=== PATIENT | female | born 1965 | race Caucasian/White ===

== ENCOUNTER 2020-11-23 08:56 | Emergency (ER) | payer OTHER ==
[2020-11-23] MEDS ORDERED: HYDROCODONE/APAP 7.5/325 MG TAB ONE (09:30)
--- NOTE | 2020-11-23 09:35 | RAD REPORT ---
EXAM DESCRIPTION: CT - Head Brain Wo Cont - 11/23/2020 9:23 am CLINICAL HISTORY: TRAUMA Fall, head injury COMPARISON: Facial Bones W/ Mpr dated 11/23/2020 TECHNIQUE: All CT scans are performed using dose optimization technique as appropriate and may inclu de automated exposure control or mA/KV adjustment according to patient size. FINDINGS: No intracranial hemorrhage, hydrocephalus or extra-axial fluid collection.No areas of brai n edema or evidence of midline shift. Moderate hemorrhagic fluid is seen in the right maxillary antrum. The right maxillary sinus is fractu red, fully detailed on dedicated CT face study. The calvarium is intact. IMPRESSION: No acute intracranial abnormality. Right maxillary sinus fracture, fully detailed in dedicated CT face study.
--- NOTE | 2020-11-23 09:39 | RAD REPORT ---
EXAM DESCRIPTION: CT - CTFB CLINICAL HISTORY: TRAUMA Trauma facial pain and swelling. COMPARISON: No comparisons TECHNIQUE: Axial 2 mm thick images of the face were obtained with sagittal and coronal reconstructio n images. All CT scans are performed using dose optimization technique as appropriate and may include automated exposure control or mA/KV adjustment according to patient size. FINDINGS: Fracture is seen involving the posterolateral wall of the right maxillary antrum and the a nterior wall.Moderate hemorrhagic fluid is seen within the right maxillary sinus.The mandible is inta ct. No additional facial bone fracture is seen. The globes and orbital contents are grossly unremarkable.Mastoid air cells are clear. IMPRESSION: Fractures involve the right maxillary sinus bullock with moderate hemorrhagic fluid.
--- NOTE | 2020-11-23 09:52 | ER ---
Nurse's Notes [facility] Name: Betty Garza Age: 55 yrs Sex: Female : 1965 Arrival Date: 11/23/2020 Time: 08:58 Bed 5 Private MD: Diagnosis: Maxillary fracture, unspecified-right Presentation: 11/23 09:06 Chief complaint: Patient states: Tripped and fell walking down stairs, bruising and ph swelling to R eye and R cheek, denies LOC, also reports R elbow pain. Coronavirus screen: Client denies travel out of the [place] in the last 14 days. Ebola Screen: No symptoms or risks identified at this time. Initial Sepsis Screen: Does the patient meet any 2 criteria? Yes Does the patient have a suspected source of infection? No. Patient's initial sepsis screen is negative. Risk Assessment: Do you want to hurt yourself or someone else? Patient reports no desire to harm self or others. Onset of symptoms was November 23, 2020. 09:06 Method Of Arrival: Ambulatory ph 09:06 Acuity: CARLOS 4 ph 09:16 Care prior to arrival: Medication(s) given: Motrin. Mechanism of Injury: Fall down 3 jl7 steps. Trauma event details: Injury occurred in the [facility], Injury occurred: at home. Injury occurred: November 23, 2020 Injury occurred at: 07:30. Trauma Activation: Not Applicable Physician: ED Physician; Name: ; Notified At: ; Arrived At: Physician: General Surgeon; Name: ; Notified At: ; Arrived At: Physician: Radiology; Name: ; Notified At: ; Arrived At: Physician: Respiratory; Name: ; Notified At: ; Arrived At: Physician: Lab; Name: ; Notified At: ; Arrived At: Historical: - Allergies: 09:10 Keflex; ph - PMHx: 09:10 Hypertension; Hyperlipidemia; Fibromyalgia; Diabetes - NIDDM; ph - PSHx: 09:10 Hysterectomy; Appendectomy; ph - Immunization history: Last tetanus immunization: unknown. - Social history:: Smoking status: unknown. Screenin:16 Abuse screen: Denies threats or abuse. Denies injuries from another. Tuberculosis jl7 screening: No symptoms or risk factors identified. 09:20 Nutritional screening: No deficits noted. Fall Risk None identified. jl7 Primary Survey: 09:16 NO uncontrolled hemorrhage observed. A: Airway: patent. Breathing/Chest: Respiratory jl7 pattern: regular, Respiratory effort: spontaneous, unlabored, Chest inspection: symmetrical rise and fall of the chest. Circulation: Pulses: palpable right radial artery and left radial artery. Skin color: pink, Skin temperature: warm. Disability Alert. Exposure/Environment: There is no evidence of uncontrolled external bleeding. Obvious injury(ies) are noted at this time: Swelling to right side of face and bruising noted to right eye. 10:00 Reassessment Breathing/Chest Respiratory pattern Regular. jl7 Secondary Survey: 09:16 HEENT: Head No injury/deformity Face Other swelling noted to right side of face Eyes: jl7 Edema noted right lower eyelid. Ecchymosis noted right lower eyelid. Ears: clear bilaterally. Nose: clear to bilateral nares. Throat: No injury or deformity noted. is clear. Assessment: 09:20 General: Appears in no apparent distress. uncomfortable, Behavior is calm, cooperative, jl7 appropriate for age. Pain: Complains of pain in right side of face Pain does not radiate. Pain currently is 7 out of 10 on a pain scale. Neuro: Level of Consciousness is awake, alert, obeys commands, Oriented to person, place, time, situation, Pupils are PERRLA, Denies blurred vision. Cardiovascular: Patient's skin is warm and dry. Respiratory: Airway is patent Respiratory effort is even, unlabored, Respiratory pattern is regular, symmetrical. Derm: Skin is pink, warm \T\ dry. Vital Signs: 09:06 BP 149 / 102; Pulse 93; Resp 18; Temp 98.5; Pulse Ox 100% on R/A; Weight 83.91 kg; ph Height 5 ft. 6 in. (167.64 cm); 09:11 BP 156 / 90; Pulse 84; Resp 15; Pulse Ox 98% ; Pain 6/10; jl7 09:06 Body Mass Index 29.86 (83.91 kg, 167.64 cm) ph [place] Coma Score: 09:16 Eye Response: spontaneous(4). Verbal Response: oriented(5). Motor Response: obeys jl7 commands(6). Total: 15. Trauma Score (Adult): 09:16 Eye Response: spontaneous(1); Verbal Response: oriented(1); Motor Response: obeys jl7 commands(2); Systolic BP: > 89 mm Hg(4); Respiratory Rate: 10 to 29 per min(4); [place] Score: 15; Trauma Score: 12 ED Course: 08:58 Patient arrived in ED. as 09:04 [facility]C [facility] kb 09:04 Uli Farah MD is Attending Physician. kb 09:05 Tawana Viramontes, DANDY is Primary Nurse. jl7 09:09 Triage completed. ph 09:10 Arm band placed on Patient placed in an exam room, on a stretcher. ph 09:11 Pulse ox on. NIBP on. Warm blanket given. jl7 09:16 Patient has correct armband on for positive identification. Bed in low position. Call jl7 light in reach. Side rails up X 1. 09:16 Patient maintains SpO2 saturation greater than 95% on room air. Thermoregulation: warm jl7 blanket given to patient. 09:23 CT Head Brain wo Cont In Process Unspecified. EDMS 09:23 CT Facial Bones W/O Con In Process Unspecified. EDMS 10:05 No provider procedures requiring assistance completed. Patient did not have IV access jl7 during this emergency room visit. Administered Medications: 09:15 Drug: [place] (HYDROcodone-acetaminophen) (7.5 mg-325 mg) 1 tabs Route: PO; jl7 09:45 Follow up: Response: No adverse reaction; Pain is decreased jl7 10:04 Drug: Augmentin (Amoxicillin-Clavulanate) 875 mg Route: PO; jl7 10:04 Follow up: Response: Medication administered at discharge. jl7 Intake: 10:00 PO: 0ml; IV: 0ml; Tubes: 0ml (); Total: 0ml. jl7 Output: 10:00 Urine: 0ml; Gastric: 0ml; Stool: 0; EBL: 0ml; Drainage: 0ml; Other: 0; Total: 0ml. jl7 Outcome: 09:51 Discharge ordered by . kb 10:00 Patient's length of stay was not longer than 2 hours. jl7 10:05 Discharged to home ambulatory. jl7 10:05 Condition: stable 10:05 Discharge instructions given to patient, family, Instructed on discharge instructions, follow up and referral plans. medication usage, Demonstrated understanding of instructions, follow-up care, medications, Prescriptions given X 2. 10:06 Patient left the ED. jl7 Signatures: Dispatcher [employer] Ewa Eric, COLLEEN RUFF-Ashlee Pedroza Patricia, RN RN Tawana Viramontes RN RN jl7
--- NOTE | 2020-11-23 09:52 | EDPHYS ---
Physician Documentation [facility] Name: Betty Garza Age: 55 yrs Sex: Female : 1965 Arrival Date: 11/23/2020 Time: 08:58 Bed 5 Private MD: ED Physician Uli Farah HPI: 11/23 09:12 This 55 yrs old Female presents to ER via Ambulatory with complaints of Fall kb Injury. 09:12 Details of fall: The patient fell from a height, down approximately 3 stairs. Onset: kb The symptoms/episode began/occurred just prior to arrival. Associated injuries: The patient sustained injury to the head, contusion, pain, swelling, tenderness. Severity of symptoms: At their worst the symptoms were moderate, in the emergency department the symptoms are unchanged. The patient has not experienced similar symptoms in the past. The patient has not recently seen a physician. Pt reports she was coming down the stairs and missed one causing her to fall to the bottom. States it was 3-4 steps that she fell down and she hit the right side of her face. Reports right facial pain. Denies LOC. Denies any other injury. Moving all extremities without discomfort, ambulates with steady gait. . Historical: - Allergies: 09:10 Keflex; ph - PMHx: 09:10 Hypertension; Hyperlipidemia; Fibromyalgia; Diabetes - NIDDM; ph - PSHx: 09:10 Hysterectomy; Appendectomy; ph - Immunization history: Last tetanus immunization: unknown. - Social history:: Smoking status: unknown. ROS: 09:12 Constitutional: Negative for fever, chills, and weight loss. kb 09:12 Skin: Positive for ecchymosis, of the right eye. 09:12 Neuro: Positive for headache, facial pain. 09:12 All other systems are negative. Exam: 09:12 Constitutional: This is a well developed, well nourished patient who is awake, alert, kb and in no acute distress. Respiratory: Respirations even and unlabored. No increased work of breathing, no retractions or nasal flaring. Abdomen/GI: Soft, non-tender. No distention MS/ Extremity: Pulses equal, no cyanosis. Neurovascular intact. Full, normal range of motion. Neuro: Awake and alert, GCS 15, oriented to person, place, time, and situation. Moves all extremities. Normal gait. Psych: Awake, alert, with orientation to person, place and time. Behavior, mood, and affect are within normal limits. 09:12 Eyes: Periorbital structures: swelling, that is mild, on the right lower eyelid, contusion, that is mild, on the right lower eyelid, ecchymosis, that is mild, on the right lower eyelid, Pupils: equal, round, and reactive to light and accomodation, Extraocular movements: intact throughout, Conjunctiva: normal. 09:12 Skin: Appearance: normal except for affected area, swelling, noted on the right cheek, that are moderate, injury, contusion(s), that are superficial, of the right eye. Vital Signs: 09:06 BP 149 / 102; Pulse 93; Resp 18; Temp 98.5; Pulse Ox 100% on R/A; Weight 83.91 kg; ph Height 5 ft. 6 in. (167.64 cm); 09:11 BP 156 / 90; Pulse 84; Resp 15; Pulse Ox 98% ; Pain 6/10; jl7 09:06 Body Mass Index 29.86 (83.91 kg, 167.64 cm) ph [place] Coma Score: 09:16 Eye Response: spontaneous(4). Verbal Response: oriented(5). Motor Response: obeys jl7 commands(6). Total: 15. Trauma Score (Adult): 09:16 Eye Response: spontaneous(1); Verbal Response: oriented(1); Motor Response: obeys jl7 commands(2); Systolic BP: > 89 mm Hg(4); Respiratory Rate: 10 to 29 per min(4); [place] Score: 15; Trauma Score: 12 MDM: 09:04 Patient medically screened. kb 09:17 Data reviewed: vital signs, nurses notes. Data interpreted: Pulse oximetry: on room air kb is 100 %. Interpretation: normal. 09:48 Counseling: I had a detailed discussion with the patient and/or guardian regarding: the kb historical points, exam findings, and any diagnostic results supporting the discharge/admit diagnosis, radiology results, the need for outpatient follow up, OMFS, to return to the emergency department if symptoms worsen or persist or if there are any questions or concerns that arise at home. 09:49 ED course: Discussed finding with ERP. Recommended outpatient follow up. kb 09:50 ED course: [employer] aware reviewed, no history on patient. . kb 09:51 ED course: right maxillary fracture without entrapment. EOMs intact without pain. . kb 11/23 09:10 Order name: CT Head Brain wo Cont; Complete Time: 09:36 kb 11/23 09:10 Order name: CT Facial Bones W/O Con; Complete Time: 09:41 kb 11/23 09:10 Order name: Ice pack; Complete Time: 09:35 kb Administered Medications: 09:15 Drug: [place] (HYDROcodone-acetaminophen) (7.5 mg-325 mg) 1 tabs Route: PO; jl7 09:45 Follow up: Response: No adverse reaction; Pain is decreased jl7 10:04 Drug: Augmentin (Amoxicillin-Clavulanate) 875 mg Route: PO; jl7 10:04 Follow up: Response: Medication administered at discharge. jl7 Disposition: 18:29 Co-signature as Attending Physician, Uli Farah MD I agree with the assessment and tw4 plan of care. Disposition: 11/23/20 09:51 Discharged to Home. Impression: Maxillary fracture, unspecified - right. - Condition is Stable. - Discharge Instructions: Orbital Floor Fracture Without Entrapment. - Prescriptions for Augmentin 875- 125 mg Oral Tablet - take 1 tablet by ORAL route every 12 hours for 10 days; 20 tablet. Tylenol- Codeine #3 300-30 mg Oral Tablet - take 2 tablets by ORAL route every 4-6 hours As needed; 16 tablet. - Medication Reconciliation Form, Thank You Letter, Antibiotic Education, Prescription Opioid Use form. - Follow up: Emergency Department; When: As needed; Reason: Worsening of condition. Follow up: Private Physician; When: 2 - 3 days; Reason: Recheck today's complaints, Continuance of care, Re-evaluation by your physician. Signatures: Dispatcher [employer] EDME Ewa Meyer FNP-C FNP-Lynsey Carey RN RN Tawana Viramontes RN RN jl7 Wadley, Terrence, MD MD tw4 Corrections: (The following items were deleted from the chart) 10:06 09:51 11/23/2020 09:51 Discharged to Home. Impression: Maxillary fracture, unspecified jl7 - right. Condition is Stable. Forms are Medication Reconciliation Form, Thank You Letter, Antibiotic Education, Prescription Opioid Use. Follow up: Emergency Department; When: As needed; Reason: Worsening of condition. Follow up: Private Physician; When: 2 - 3 days; Reason: Recheck today's complaints, Continuance of care, Re-evaluation by your physician. kb
[2020-11-23 10:11] VITALS: TEMP 98.5
[2020-11-23 10:12] VITALS: BP 156/90; O2SAT 98
[2020-11-23] MEDS ORDERED: AMOX/K CLAV 875 MG TAB ONE (10:18)
== END 2020-11-23 10:06 | disposition home or self-care (01) ==
LOC: ER 08:56
DX: S02.40CA Maxillary fracture, right side, initial encounter for closed fracture (principal); W10.8XXA Fall (on) (from) other stairs and steps, initial encounter; Y93.01 Activity, walking, marching and hiking; I10 Essential (primary) hypertension; Z88.8 Allergy status to other drugs, medicaments and biological substances
CPT/HCPCS: 70450; 70486; 76377; 99284